=== PATIENT | male | born 1970 | race Caucasian/White ===

== ENCOUNTER → 2018-09-03 | Outpatient (CLI) | payer BC ==
--- NOTE | 2018-09-03 15:05 | Diagnostic Imaging Report ---
PROCEDURE: US Gallbladder. TECHNIQUE: Multiple real-time grayscale images were obtained over the right upper quadrant in various projections. INDICATION: Right upper quadrant pain. FINDINGS: The liver is normal in size at 17 cm. No discrete liver mass is identified. The portal vein is patent and shows normal direction of flow. Gallbladder is without stones or sludge. No wall thickening or pericholecystic fluid is seen. The extrahepatic bile duct is upper limits of normal at 6-7 mm. No definite common duct stone is seen at this time. The pancreas was obscured by bowel gas. The right kidney is unremarkable. There is no ascites. IMPRESSION: 1. No evidence of cholelithiasis or acute cholecystitis. The extrahepatic bile duct is upper limits of normal in size. No other abnormality is seen. Dictated by: Dictated on workstation # [id number]
== END ==
LOC: RAD 13:58
PROVIDERS: ATTEND Surgery
DX: R10.11 Right upper quadrant pain (principal)
CPT/HCPCS: 76705

== ENCOUNTER → 2018-09-07 | Outpatient (CLI) | payer BC ==
[~2018-09-07] MED LIST: ACHD5005 PO; CATHETER FLUSH 10 ML SYR IV PRN
[2018-09-07 09:13] LABS: HEMOGLOBIN 14.6 G/DL (13.3-17.7); MEAN PLATELET VOLUME 9.8 FL (7.4-10.4); RED BLOOD COUNT 4.7 10^6/uL (4.35-5.85); RED CELL DISTRIBUTION WIDTH 13.2 % (10.0-14.5); WHITE BLOOD COUNT 4.9 10^3/uL (4.3-11.0)
[2018-09-07 09:34] LABS: ALANINE AMINOTRANSFERASE 25 U/L (0-55); ALBUMIN 4.3 GM/DL (3.2-4.5); ALKALINE PHOSPHATASE 48 U/L (40-136); AMYLASE 56 U/L (25-125); BILIRUBIN,DIRECT 0.4 MG/DL (0.0-0.3); BILIRUBIN,INDIRECT 0.5 MG/DL; BILIRUBIN,TOTAL 0.9 MG/DL (0.1-1.0); BUN/CREATININE RATIO 14; CALCIUM 9.3 MG/DL (8.5-10.1); CARBON DIOXIDE 26 MMOL/L (21-32); CHLORIDE 108 MMOL/L (98-107); CREATININE SERUM 1.15 MG/DL (0.60-1.30); GFR ESTIMATED > 60; GLUCOSE 94 MG/DL (70-105); LIPASE 13 U/L (8-78); POTASSIUM 4.3 MMOL/L (3.6-5.0); SODIUM 143 MMOL/L (135-145); TOTAL PROTEIN 6.7 GM/DL (6.4-8.2)
--- NOTE | 2018-09-07 16:01 | Diagnostic Imaging Report ---
INDICATION: Right upper quadrant pain. TECHNIQUE: The patient was administered 5.5 mCi of technetium 99m Choletec and imaging over the abdomen was performed. At 45 minutes, the patient ingested 8 ounces of Ensure and the gallbladder ejection fraction was calculated. FINDINGS: There is homogeneous uptake of activity by the liver. There is prompt excretion of activity into the common duct and gallbladder with normal passage into the small bowel. The gallbladder ejection fraction is low at 17%. Normal values are 33% or greater. IMPRESSION: 1. No evidence of cystic duct or common bile duct obstruction. 2. Low gallbladder ejection fraction of 17%. Dictated by: Dictated on workstation # [id number]
== END ==
LOC: CARD 08:59
PROVIDERS: ATTEND Surgery
DX: R10.11 Right upper quadrant pain (principal)
CPT/HCPCS: 36415; 78227; 80053; 80076; 82150; 83690; 85027

== ENCOUNTER 2018-09-13 06:18 | Outpatient (CLI) | payer BC ==
[~2018-09-13] VITALS: Ht 195.6 cm; Wt 95.3 kg
[2018-09-14] MEDS ORDERED: ACHD5005 PO (09:46)
== END 2018-09-13 14:03 | disposition home or self-care (01) ==
LOC: PREOP 06:18
PROVIDERS: ATTEND Surgery
DX: Z01.818 Encounter for other preprocedural examination (principal)

== ENCOUNTER 2018-09-14 06:09 | Day surgery (SDC) | payer BC ==
[~2018-09-14] VITALS: Ht 195.6 cm; Wt 95.4 kg
[2018-09-14 06:25] VITALS: BP 118/74
[2018-09-14] MEDS ORDERED: metroNIDAZOLE 500MG/100ML IVPB 100 ML IV ONE (06:30)
[2018-09-14] MEDS ORDERED: ceFAZolin 2 GM IV Premixed 50 ML IV ONE (06:30)
[2018-09-14] MEDS ORDERED: MIDAZOLAM 2 MG/2 ML (VERSED) VIAL ONE (06:46)
[2018-09-14] MEDS ORDERED: DEXAMETHASONE 10 MG/ML (DECADRON) 1 ML VIAL ONE (06:46)
[2018-09-14] MEDS ORDERED: LIDOCAINE PF 2% 5 ML (XYLOCAINE) VIAL ONE (06:46)
[2018-09-14] MEDS ORDERED: fentaNYL INJECTION 100 MCG/2 ML AMP ONE ×2 (06:46→09:20)
[2018-09-14] MEDS ORDERED: ROCURONIUM 10 MG/ML 5 ML SYRINGE IV ONE ×2 (06:46→09:00)
[2018-09-14] MEDS ORDERED: ONDANSETRON 4 MG/2 ML (SDV) Z0FRAN ONE (06:46)
[2018-09-14] MEDS ORDERED: proPOfol 200 MG/20 ML (DIPRIVAN) VIAL IV ONE (06:46)
[2018-09-14] MEDS ORDERED: SEVOFLURANE (ULTANE) 15 ML INHAL SOLN ONE ×6 (06:46→09:00)
[2018-09-14] MEDS ORDERED: BUP/EPI 0.5% 1:200,000 (SENSORCAINE) 30 ML VIAL ONE (07:00)
[2018-09-14] MEDS: LACTATED RINGERS 1,000 ML IV PRN ×3 (08:10→10:21)
--- NOTE | 2018-09-14 08:11 | Progress Note-Pre Operative ---
Pre-Operative Progress Note H&P Reviewed The H&P was reviewed, patient examined and no changes noted. Date Seen by Provider: Sep 07, 2018 Time Seen by Provider: 14:00 Date H&P Reviewed: Sep 14, 2018 Time H&P Reviewed: 08:10 Pre-Operative Diagnosis: Chronic acalculous cholecystitis AMITA RUSHING MD Sep 14, 2018 08:11
[2018-09-14] MEDS ORDERED: NEOSTIGMINE 1 MG/ML 5 ML SYRINGE ONE (09:25)
[2018-09-14] MEDS ORDERED: GLYCOPYRROLATE 0.2 MG/ML (ROBINUL) 2 ML VIAL ONE ×2 (09:25)
[2018-09-14] MEDS ORDERED: KETOROLAC 30 MG/ML VIAL ONE (09:45)
--- NOTE | 2018-09-14 09:45 | Operative Report ---
Operative Report Date of Procedure/Surgery Sep 14, 2018 Surgeon (s) AMITA RUSHING MD Log Grader (s): N/A Post-Operative Diagnosis Same Procedure Performed Robotic-assisted cholecystectomy Description of Procedure Anesthesia Type: General Estimated blood loss (mL): Minimal Specimen(s) collected/removed Gallbladder Description of the Procedure Indication for the procedure: This gentleman presented with symptoms due to chronic acalculous cholecystitis and reduced ejection fraction of the gallbladder on HIDA scan. He was therefore offered cholecystectomy using minimally invasive technique with robotic assistance. Informed consent was obtained after reviewing the operative details and complications of wound infection, bile leak and persistence of his symptoms. Description of procedure: He was placed supine on the operating table and general anesthesia induced. 2 g of Ancef and 5 mg of Flagyl were administered intravenously as prophylaxis against wound infection. Sequential compression devices were placed around his legs, to minimize the risk of venous thrombosis. Abdomen was prepared and draped in the usual sterile manner. Pneumoperitoneum was established using a Veress needle introduced over the supra-umbilical region. Intra-abdominal pressure was maintained at 15 mmHg, using carbon dioxide insufflation. 12 mm trocar was placed and anatomy visualized using the high definition, 3-dimensional laparoscope, associated with da Cassandra system. Omentum was adherent to the anterior abdominal wall over the epigastric region. In addition, transverse colon and the pylorus of the stomach were adherent to the gallbladder and the liver, obscuring initial view of the gallbladder Under direct view, I placed an 8 mm trocar over each side of the abdomen, followed by a 5 mm trocar over the left upper quadrant. The robotic system was then docked in place. Omentum was initially taken down from underneath the abdominal wall. Subsequently, by careful dissection, transverse colon and the associated mentum were from the gallbladder by sharp dissection. The pylorus of the stomach was kept out of harm's way as well. The fundus of the gallbladder was held up to the abdominal wall by flimsy adhesions was taken down followed by retraction of the fundus cephalad. Infundibulum was grasped using Cadiere forceps and the tissue around the neck of the gallbladder incised using hook cautery, delineating the cystic duct and artery. Both were controlled between locking clips. Cholecystectomy was then completed using the heart. Subhepatic space was irrigated with saline and the gallbladder placed in an Endo Catch bag, being removed via the supraumbilical trocar site. The fascia over this incision was closed using #1 Vicryl using a Forrest Rebolledo device, under direct view. Incisions were closed using 4-0 Vicryl, in a subcuticular fashion. 0.5 percent Marcaine with epinephrine was infiltrated along the incisions, both preemptively and at the conclusion of the operation he tolerated the procedure well, was extubated in the operating room and taken to the recovery room in a stable condition. Findings of the Procedure See op report Allergies and Home Medications Allergies Coded Allergies: No Allergy Information Available (Unverified , 09/07/18) Home Medications No Active Prescriptions or Reported Meds Patient Home Medication List Home Medication List Reviewed: Yes AMITA RUSHING MD Sep 14, 2018 09:45
[2018-09-14] MEDS ORDERED: ACHD5005 PO (09:46)
--- NOTE | 2018-09-14 09:47 | Discharge Inst-Simple/Standard ---
Discharge Inst-Standard Discharge Medications New, Converted or Re-Newed RX: RX on Chart Patient Instructions/Follow Up Plan of Care/Instructions/FU: Band-Aids off in 48 hours. Incentive spirometry. We shall arrange follow-up over the phone. Activity as Tolerated: Yes Discharge Diet: No Restrictions AMITA RUSHING MD Sep 14, 2018 09:47
[2018-09-14] MEDS ORDERED: ONDANSETRON 4 MG/2 ML (SDV) Z0FRAN IVP PRN (10:00)
[2018-09-14] MEDS ORDERED: HYDROmorphone 2 MG/ML VIAL (DILAUDID) IV ONE (10:00)
[2018-09-14 10:50] VITALS: BP 118/74
[2018-09-14 10:55] VITALS: BP 118/74
[2018-09-14 11:20] VITALS: BP 111/65
[2018-09-14] MEDS ORDERED: HYDROcodone/APAP 5 MG/325 MG (LORTAB) TAB ONE (11:31)
[2018-09-14] MEDS ORDERED: HYDROcodone/APAP 5 MG/325 MG (LORTAB) TAB PO ONE (11:45)
[2018-09-14 11:50] VITALS: BP 120/74
--- NOTE | 2018-09-14 13:00 | Anesthesia-General Post-Op ---
General Patient Condition Mental Status/LOC: Same as Preop Cardiovascular: Satisfactory Nausea/Vomiting: Absent Respiratory: Satisfactory Pain: Controlled Complications: Absent Post Op Complications Complications None Follow Up Care/Instructions Patient Instructions None needed. Anesthesia/Patient Condition Patient Condition Patient is doing well, no complaints, stable vital signs, no apparent adverse anesthesia problems. No complications reported per nursing. SARAH MILES CRNA Sep 14, 2018 13:00
== END 2018-09-14 12:00 | disposition home or self-care (01) ==
LOC: SDC 06:09
PROVIDERS: ATTEND Surgery
DX: K81.1 Chronic cholecystitis (principal)
CPT/HCPCS: 87081; 94664